=== PATIENT | female | born 1945 | race Caucasian/White ===

== ENCOUNTER 2020-08-22 11:26 | Emergency (ER) | payer MEDICARE ==
[~2020-08-22] VITALS: Ht 167.6 cm; Wt 77.1 kg
[~2020-08-22 11:26] MED LIST: ALPR.25 PO; ASPI81CH PO; CIPR250 PO; CIPRO500 MG PO; DIPATR PO; Keflex500 MG PO; LISHYD1012 PO; LISHYD2025 PO; METO10 PO; Macrobid 100 M100 MG PO; Miralax17 GM PO; SIME80CH PO; SPIR25 PO; Vistaril50 MG PO; ZESTORETIC 20-121 EA PO
[2020-08-22] MEDS ORDERED: ATOR20 (11:52)
[2020-08-22 11:53] LABS: Source, Urine Clean Catch
[2020-08-22] MEDS ORDERED: FLUOXETINE HCL10 MG PO (11:54)
[2020-08-22] MEDS ORDERED: RAMELTEON8 MG PO (11:54)
[2020-08-22] MEDS ORDERED: TRAZ100 PO (11:54)
[2020-08-22 12:12] LABS: Appearance, Urine Clear (Clear); Bilirubin, Urine Neg (Neg); Blood, Urine 2+ (Neg); Color, Urine Yellow (P-Yellow); Glucose Qualitative, Urine Neg (Neg); Ketones, Urine Neg (Neg); Leukocyte Esterase, Urine 3+ (Neg); Nitrite, Urine Neg (Neg); Protein, Urine Neg (Neg); Urobilinogen, Urine NORM (Normal)
[2020-08-22 12:28] LABS: Bacteria Few /hpf; Squamous Epithelial Cells Few /hpf (Few)
[2020-08-22] MEDS ORDERED: CEPH500 PO (12:44)
[2020-08-22] MEDS ORDERED: PHENA200 PO (12:44)
[2020-08-30] MEDS ORDERED: IMODIUM A-D2 M1 PO (08:49)
[2020-08-30] MEDS ORDERED: Aspir 8181 MG PO (08:50)
== END 2020-08-22 12:55 | disposition home or self-care (01) ==
LOC: ER 11:26
PROVIDERS: Physician Assistant
DX: N39.0 Urinary tract infection, site not specified (principal); I10 Essential (primary) hypertension; E78.5 Hyperlipidemia, unspecified; Z87.891 Personal history of nicotine dependence
CPT/HCPCS: 81001; 87086; 99283; A9270

== ENCOUNTER 2020-09-07 06:41 | Day surgery (SDC) | payer MEDICARE ==
[~2020-09-07] VITALS: Ht 160 cm; Wt 67.9 kg
[~2020-09-07 06:41] MED LIST changes: +ATOR20; +Aspir 8181 MG PO; +CEPH500 PO; +FLUOXETINE HCL10 MG PO; +IMODIUM A-D2 M1 PO; +PHENA200 PO; +RAMELTEON8 MG PO; +TRAZ100 PO
== END 2020-09-07 08:41 | disposition home or self-care (01) ==
LOC: ORSCSDS 06:41
PROVIDERS: Surgery
PROC: 0DJD8ZZ Inspection of Lower Intestinal Tract, Via Natural or Artificial Opening Endoscopic (ICD-10-PCS; principal; 2020-09-07 08:00)
DX: R19.4 Change in bowel habit (principal); K52.9 Noninfective gastroenteritis and colitis, unspecified; K57.30 Diverticulosis of large intestine without perforation or abscess without bleeding; J44.9 Chronic obstructive pulmonary disease, unspecified; E78.5 Hyperlipidemia, unspecified; F41.8 Other specified anxiety disorders; F17.210 Nicotine dependence, cigarettes, uncomplicated; Z79.82 Long term (current) use of aspirin; Z79.899 Other long term (current) drug therapy
CPT/HCPCS: J2704; J7120

== ENCOUNTER → 2023-02-14 | Outpatient (CLI) | payer MEDICARE ==
[2023-02-14 13:09] LABS: Source, Urine Clean Catch
[2023-02-14 13:20] LABS: Red Blood Cells, Urine 0-2 /hpf (0-2)
[2023-02-14 13:21] LABS: Bacteria Few /hpf; Hyaline Casts 0-2 /lpf (0-2); Squamous Epithelial Cells Mod /hpf (Few)
== END | disposition home or self-care (01) ==
LOC: LAB SHORT 13:06 → LAB 13:06
PROVIDERS: Family Medicine
DX: R31.9 Hematuria, unspecified (principal)
CPT/HCPCS: 81015

== ENCOUNTER → 2023-03-01 | Outpatient (CLI) | payer MEDICARE ==
[2023-03-01 17:22] LABS: Adenovirus F 40/41 Not Detected (NOT DETECT); Astrovirus Not Detected (NOT DETECT); Campylobacter Sp Not Detected (NOT DETECT); Cryptosporidium Not Detected (NOT DETECT); Cyclospora Cayetanensis Not Detected (NOT DETECT); E. Coli O157 Not Detected (NOT DETECT); Entamoeba Histolytica Not Detected (NOT DETECT); Enteroaggregative E. coli-EAEC Not Detected (NOT DETECT); Enteropathogenic E. coli-EPEC Not Detected (NOT DETECT); Enterotoxigenic E. coli-ETEC Not Detected (NOT DETECT); Giardia Lamblia Not Detected (NOT DETECT); Plesiomonas Shigelloides Not Detected (NOT DETECT); Salmonella Sp Not Detected (NOT DETECT); Shiga Toxin-prod E. coli-STEC Not Detected (NOT DETECT); Shigella/Enteroin E. coli-EIEC Not Detected (NOT DETECT); Vibrio Cholerae Not Detected (NOT DETECT); Vibrio Sp Not Detected (NOT DETECT); Yersinia Enterocolitica Not Detected (NOT DETECT)
[2023-03-01 17:23] LABS: Norovirus GI/GII Not Detected (NOT DETECT); Rotavirus A Not Detected (NOT DETECT); Sapovirus Not Detected (NOT DETECT)
== END ==
LOC: LAB SHORT 07:00 → LAB 07:00
PROVIDERS: Physician Assistant Medical
DX: A09 Infectious gastroenteritis and colitis, unspecified (principal)
CPT/HCPCS: 87507